=== PATIENT | male | born 1955 | race Caucasian/White ===

== ENCOUNTER 2020-06-11 10:49 | Inpatient (IN) | payer MEDICAID ==
[~2020-06-11] VITALS: Ht 172.7 cm; Wt 88.6 kg
--- NOTE | 2020-06-11 11:10 | NUR ---
Spoke to medical records at [facility]. They will fax records from ED visit.
[2020-06-11 11:39] LABS: BASOPHILS # (AUTO) 0.1 X10'3 (0-0.2); BASOPHILS % (AUTO) 0.8 % (0-1); EOSINOPHILS # (AUTO) 0.1 X10'3 (0-0.9); EOSINOPHILS % (AUTO) 0.7 % (0-6); HEMATOCRIT 47.3 % (42.0-52.0); HEMOGLOBIN 15.9 g/dl (14.0-17.9); LYMPHOCYTES # (AUTO) 0.9 X10'3 (1.1-4.8); LYMPHOCYTES % (AUTO) 10.3 % (21-51); MEAN CORPUSCULAR HEMOGLOBIN 33.3 PG (27.0-31.0); MEAN CORPUSCULAR HGB CONC 33.5 g/dL (33.0-36.5); MEAN CORPUSCULAR VOLUME 99.2 FL (78-98); MONOCYTES # (AUTO) 0.8 X10'3 (0-0.9); MONOCYTES % (AUTO) 8.5 % (2-12); NEUTROPHILS # (AUTO) 7.2 X10'3 (1.8-7.7); NEUTROPHILS % (AUTO) 79.7 % (42-75); PLATELET COUNT 245 X10'3 (140-440); RED BLOOD COUNT 4.77 X10'6 (4.70-6.10); RED CELL DISTRIBUTION WIDTH 13.5 % (11.5-14.5)
[2020-06-11 11:43] LABS: D-DIMER 0.97 MG/L FEU (0-0.50)
[2020-06-11 11:47] LABS: ALANINE AMINOTRANSFERASE 119 U/L (12-78); ALBUMIN 3.7 G/DL (3.4-5.0); ALBUMIN/GLOBULIN RATIO 1.2 (1.1-1.5); ALKALINE PHOSPHATASE 122 IU/L (46-116); ANION GAP 10 (8-16); ASPARTATE AMINO TRANSFERASE 65 U/L (10-37); BILIRUBIN,TOTAL 1.2 MG/DL (0.1-1.0); BLOOD UREA NITROGEN 28 MG/DL (7-18); BUN/CREATININE RATIO 17.3 (5.4-32.0); CALCIUM 8.8 MG/DL (8.5-10.1); CHLORIDE 106 MMOL/L (99-107); CREATININE 1.62 MG/DL (0.60-1.10); GLUCOSE 131 MG/DL (70-104); POTASSIUM 4.7 MMOL/L (3.5-5.1); SODIUM 139 MMOL/L (135-145); TOTAL CARBON DIOXIDE 23.2 MMOL/L (24-32); TOTAL PROTEIN 6.8 G/DL (6.4-8.2); eGFR 43 ML/MIN
[2020-06-11] MEDS ORDERED: albuterol 2.5 MG/3 ML nebule ONE (11:51)
[2020-06-11] MEDS ORDERED: furosemide 10 MG/1 ML 10ml inj IV ONE (12:05)
[2020-06-11] MEDS ORDERED: potassium Cl 20 mEq SR tablet PO STA (12:05)
[2020-06-11] MEDS ORDERED: iohexol 350MG/ML 100ml bottle IV ONE (12:29)
[2020-06-11] MEDS ORDERED: ALBU8HFA PO (13:19)
[2020-06-11] MEDS ORDERED: CARV6.253 PO (13:19)
[2020-06-11] MEDS ORDERED: morphine 2 MG/ML inj. syringe IV PRN ×2 (13:20)
[2020-06-11] MEDS ORDERED: acetaminophen 325mg tablet PO PRN ×2 (13:20)
[2020-06-11] MEDS ORDERED: ondansetron/PF 4mg/2ml inj IV PRN (13:20)
[2020-06-11] MEDS ORDERED: HYDROcodone/acetaminophen 5mg/325mg tablet PO PRN (13:20)
[2020-06-11] MEDS ORDERED: ipratropium/albuterol 3ml nebule NEB PRN (13:20)
[2020-06-11] MEDS ORDERED: metoclopramide 5 mg/ml inj IV PRN (13:20)
[2020-06-11] MEDS ORDERED: HYDROcodone/acetaminophen 10/325mg tab PO PRN (13:20)
[2020-06-11] MEDS ORDERED: magnesium 2GM in 50ml NS 50 ML IV PRN (13:20)
[2020-06-11] MEDS ORDERED: bisacodyl 10mg suppository rectal RC PRN (13:20)
[2020-06-11] MEDS ORDERED: magnesium 4gm in 100ml NS 100 ML IV PRN (13:20)
[2020-06-11] MEDS ORDERED: diphenhydrAMINE 25mg capsule PO PRN (13:20)
[2020-06-11] MEDS ORDERED: magnesium hydroxide 30ml (MOM) UD suspension PO PRN (13:20)
[2020-06-11] MEDS ORDERED: methylPREDNISolone sod succ 125mg/2ml vial IV ONE (13:20)
[2020-06-11] MEDS ORDERED: diphenhydrAMINE 50 mg/ml inj IV PRN (13:20)
[2020-06-11] MEDS ORDERED: potassium CL 10mEq/100ml bag 100 ML IV PRN ×2 (13:20)
[2020-06-11] MEDS ORDERED: potassium Cl 20 mEq SR tablet PO PRN ×2 (13:20)
[2020-06-11] MEDS ORDERED: magnesium Cl slow-release 64mg tablet PO PRN (13:20)
[2020-06-11] MEDS ORDERED: mag hydrox/Alum hydrox/simeth 30ml oral suspension PO PRN (13:20)
[2020-06-11] MEDS ORDERED: aspirin 325mg tablet PO ONE (13:30)
[2020-06-11] MEDS ORDERED: nitroGLYCERIN 0.4mg SUBLingual tab SL PRN (13:30)
--- NOTE | 2020-06-11 14:06 | NUR ---
Patient in room ED 6. I have received report from wilder garcia rn and had the opportunity to ask questions and assume patient care.
[2020-06-11 14:12] LABS: URINE AMPHETAMINE SCREEN POSITIVE (Neg); URINE BARBITUATE SCREEN NEGATIVE (Neg); URINE BENZODIAZEPINES SCREEN NEGATIVE (Neg); URINE CANNABINOID SCREEN POSITIVE (Neg); URINE COCAINE SCREEN NEGATIVE (Neg); URINE METHADONE SCREEN NEGATIVE (Neg); URINE OPIATE SCREEN NEGATIVE (Neg); URINE PHENCYCLIDINE SCREEN NEGATIVE (Neg)
[2020-06-11 14:30] VITALS: BP 151/100
[2020-06-11 14:37] LABS: HEMOGLOBIN A1C 6.1 % (4.5-6.2)
--- NOTE | 2020-06-11 14:45 | NUR ---
received pt into room 311,oriented to surroundings,pt calm,cooperative ,aware of poc,echo in progress
[2020-06-11 14:46] LABS: PHOSPHORUS 4.5 MG/DL (2.3-4.5)
[2020-06-11] MEDS: ipratropium/albuterol 3ml nebule NEB SCH ×3 (16:52→23:37)
[2020-06-11 18:00] VITALS: BP 149/117
--- NOTE | 2020-06-11 18:19 | NUR ---
Problems reprioritized. Patient report given, questions answered & plan of care reviewed with laisha Araujo.
[2020-06-11] MEDS: methylPREDNISolone sod succ 125mg/2ml vial IV SCH (19:48)
[2020-06-11] MEDS: furosemide 40mg/4ml inj IV SCH (19:49)
[2020-06-11] MEDS: carvedilol 6.25mg tablet PO SCH (19:50)
[2020-06-11] MEDS: lisinopril 10 MG tablet PO SCH (19:56)
[2020-06-11] MEDS: K and/or MAG REPLACEMENT MC SCH (19:57)
[2020-06-11] MEDS ORDERED: temazepam 15mg capsule PO PRN (21:00)
[2020-06-11 22:00] VITALS: BP 142/100
[2020-06-12] VITALS (7 sets, daily range): BP systolic 105–138; BP diastolic 75–102
[2020-06-12 00:43] LABS: HEMATOCRIT 47.6 % (42.0-52.0); HEMOGLOBIN 15.9 g/dl (14.0-17.9); MEAN CORPUSCULAR HEMOGLOBIN 33.2 PG (27.0-31.0); MEAN CORPUSCULAR HGB CONC 33.5 g/dL (33.0-36.5); MEAN CORPUSCULAR VOLUME 99.1 FL (78-98); PLATELET COUNT 247 X10'3 (140-440); RED CELL DISTRIBUTION WIDTH 13.7 % (11.5-14.5); WHITE BLOOD COUNT 7.2 X10'3 (4.5-11.0)
[2020-06-12 00:52] LABS: ALBUMIN 3.5 G/DL (3.4-5.0); ANION GAP 10 (8-16); BLOOD UREA NITROGEN 39 MG/DL (7-18); BUN/CREATININE RATIO 20.2 (5.4-32.0); CALCIUM 8.4 MG/DL (8.5-10.1); CHLORIDE 103 MMOL/L (99-107); CREATININE 1.93 MG/DL (0.60-1.10); GLUCOSE 161 MG/DL (70-104); POTASSIUM 4.2 MMOL/L (3.5-5.1); SODIUM 139 MMOL/L (135-145); TOTAL CARBON DIOXIDE 25.7 MMOL/L (24-32); eGFR 35 ML/MIN
[2020-06-12 00:55] LABS: CHOLESTEROL 131 MG/DL (0-200); HDL CHOLESTEROL 33 MG/DL (35-60); LDL CHOLESTEROL 94 MG/DL (50-100); PHOSPHORUS 5.2 MG/DL (2.3-4.5); TRIGLYCERIDES 44 MG/DL (20-135)
[2020-06-12] MEDS: methylPREDNISolone sod succ 125mg/2ml vial IV SCH ×3 (02:24→15:42)
[2020-06-12] MEDS: ipratropium/albuterol 3ml nebule NEB SCH ×6 (03:28→23:51)
--- NOTE | 2020-06-12 06:27 | NUR ---
Problems reprioritized. Patient report given, questions answered & plan of care reviewed with MARCELLA Iglesias.
[2020-06-12] MEDS: K and/or MAG REPLACEMENT MC SCH ×2 (08:00→19:03)
[2020-06-12] MEDS ORDERED: aspirin 325mg tablet PO SCH (08:30)
[2020-06-12] MEDS: furosemide 40mg/4ml inj IV SCH (09:04)
[2020-06-12] MEDS: carvedilol 6.25mg tablet PO SCH ×2 (09:05→19:11)
[2020-06-12] MEDS: aspirin 81mg tablet.DR PO SCH (09:06)
[2020-06-12] MEDS: lisinopril 10 MG tablet PO SCH (09:08)
[2020-06-12] MEDS: enoxaparin 40mg/0.4ml syringe SUBCUT SCH (09:09)
--- NOTE | 2020-06-12 15:45 | NUR ---
Report given to Med/capacity management specialist. The pt has remained stable MD and an order for transfer received. The pt was taken via wheelchair to Med/Surg unit.
--- NOTE | 2020-06-12 17:03 | NUR ---
Oriented to room, call light within reach, VS taken. Pt. appears to be in no distress.
--- NOTE | 2020-06-12 17:14 | NUR ---
PAGER ID: [phone] MESSAGE: Chauncey Perry [id number] FYI BP 150/102... Diastolic has been trending high. Pt. transferred from [facility] to surgical. Saskia [id number]
--- NOTE | 2020-06-12 18:46 | NUR ---
Problems reprioritized. Patient report given, questions answered & plan of care reviewed with DIANA NARANJO.
--- NOTE | 2020-06-12 18:50 | NUR ---
Gave report to Prudence MARCELLA.
--- NOTE | 2020-06-12 18:59 | NUR ---
Patient in room [facility] 340. I have received report from Raquel NARANJO and had the opportunity to ask questions and assume patient care.
--- NOTE | 2020-06-12 19:16 | NUR ---
Problems reprioritized. Patient report given, questions answered & plan of care reviewed with YO NARANJO.Patient was transported to ortho floor and no sign of distress upon arrival.
[2020-06-13] MEDS: ipratropium/albuterol 3ml nebule NEB SCH ×3 (03:46→13:11)
[2020-06-13 05:56] LABS: HEMATOCRIT 45.6 % (42.0-52.0); HEMOGLOBIN 15.2 g/dl (14.0-17.9); MEAN CORPUSCULAR HEMOGLOBIN 32.8 PG (27.0-31.0); MEAN CORPUSCULAR HGB CONC 33.2 g/dL (33.0-36.5); MEAN CORPUSCULAR VOLUME 98.9 FL (78-98); MEAN PLATELET VOLUME 9.2 FL (7.4-10.4); PLATELET COUNT 245 X10'3 (140-440); RED BLOOD COUNT 4.61 X10'6 (4.70-6.10); RED CELL DISTRIBUTION WIDTH 13.7 % (11.5-14.5); WHITE BLOOD COUNT 19.4 X10'3 (4.5-11.0)
[2020-06-13 06:00] VITALS: BP 91/68
[2020-06-13 06:01] LABS: ALBUMIN 3.3 G/DL (3.4-5.0); ANION GAP 8 (8-16); BLOOD UREA NITROGEN 61 MG/DL (7-18); BUN/CREATININE RATIO 31.8 (5.4-32.0); CALCIUM 8.2 MG/DL (8.5-10.1); CHLORIDE 102 MMOL/L (99-107); CREATININE 1.92 MG/DL (0.60-1.10); GLUCOSE 144 MG/DL (70-104); MAGNESIUM 2.2 MG/DL (1.5-2.4); PHOSPHORUS 4.8 MG/DL (2.3-4.5); POTASSIUM 4.4 MMOL/L (3.5-5.1); SODIUM 136 MMOL/L (135-145); TOTAL CARBON DIOXIDE 26.2 MMOL/L (24-32); eGFR 35 ML/MIN
--- NOTE | 2020-06-13 06:13 | NUR ---
Problems reprioritized. Patient report given, questions answered & plan of care reviewed with Zari NARANJO.
[2020-06-13] MEDS ORDERED: furosemide 40mg/4ml inj IV SCH (08:00)
[2020-06-13] MEDS: lisinopril 10 MG tablet PO SCH (09:59)
[2020-06-13] MEDS: carvedilol 6.25mg tablet PO SCH (09:59)
[2020-06-13 10:00] VITALS: BP 125/80
[2020-06-13] MEDS: enoxaparin 40mg/0.4ml syringe SUBCUT SCH (10:00)
[2020-06-13] MEDS: aspirin 81mg tablet.DR PO SCH (10:00)
[2020-06-13] MEDS ORDERED: FURO20TA4 PO (11:52)
[2020-06-13] MEDS ORDERED: LISI10TA4 PO (11:52)
[2020-06-13] MEDS ORDERED: SPIR25TA PO (11:52)
[2020-06-13] MEDS ORDERED: ASPI-1071 PO (11:52)
--- NOTE | 2020-06-13 14:29 | NUR ---
Received discharge orders from Dr. Bean. Discontinued saline lock from LFA with cannula intact. No redness/swelling at IV site. Tele #6 discontinued per MD orders. Reviewed pts discharge information with pt at bedside. Pt discharged via w/c to front lobby for caregiver to pick up and delivery driver.
[2020-06-13 17:24] LABS: HBSAG SCREEN Negative (Negative); HEP A AB, IGM Negative (Negative); HEPATITIS C ANTIBODY <0.1 s/co ratio (0.0-0.9)
== END 2020-06-13 14:30 | disposition home or self-care (01) | DRG 812 ==
LOC: ER 10:50 → CANBEDREQ 12:52 → ED HOLD 13:18 → MED 3N 14:30 → SUR 3N 06-12 15:47 → ORTHO 4S 06-12 19:15
PROVIDERS: ADMIT Family Medicine; ATTEND Family Medicine
DX: T43.621A Poisoning by amphetamines, accidental (unintentional), initial encounter (principal); I21.4 Non-ST elevation (NSTEMI) myocardial infarction; I50.21 Acute systolic (congestive) heart failure; N17.9 Acute kidney failure, unspecified; F19.10 Other psychoactive substance abuse, uncomplicated; F15.10 Other stimulant abuse, uncomplicated; F41.1 Generalized anxiety disorder; I08.1 Rheumatic disorders of both mitral and tricuspid valves; I13.0 Hypertensive heart and chronic kidney disease with heart failure and stage 1 through stage 4 chronic kidney disease, or unspecified chronic kidney disease; I42.7 Cardiomyopathy due to drug and external agent; J45.909 Unspecified asthma, uncomplicated; N18.9 Chronic kidney disease, unspecified; Z20.828 Contact with and (suspected) exposure to other viral communicable diseases
CPT/HCPCS: 36415; 71045; 71275; 76700; 80048; 80053; 80061; 80074; 80305; 83036; 83735; 83880; 84100; 84443; 84484; 85025; 85027; 85379; 87081; 93005; 93306; 93308; 94640; 94667; 94668; 94760; 96374; 96375; 99285; G0378; J1650; J1940; J2930; Q9967

== ENCOUNTER 2020-06-16 05:03 | Emergency (ER) | payer MEDICAID ==
[~2020-06-16] VITALS: Ht 172.7 cm; Wt 86.4 kg
[~2020-06-16 05:03] MED LIST: ALBU8HFA PO; ASPI-1071 PO; CARV6.253 PO; FURO20TA4 PO; LISI10TA4 PO; SPIR25TA PO
[2020-06-16 05:45] LABS: BASOPHILS % (AUTO) 0.3 % (0-1); EOSINOPHILS # (AUTO) 0.2 X10'3 (0-0.9); EOSINOPHILS % (AUTO) 2.2 % (0-6); HEMOGLOBIN 16.6 g/dl (14.0-17.9); LYMPHOCYTES # (AUTO) 1.1 X10'3 (1.1-4.8); LYMPHOCYTES % (AUTO) 13.4 % (21-51); MEAN CORPUSCULAR HEMOGLOBIN 32.6 PG (27.0-31.0); MEAN CORPUSCULAR HGB CONC 33.1 g/dL (33.0-36.5); MEAN CORPUSCULAR VOLUME 98.4 FL (78-98); MONOCYTES # (AUTO) 0.9 X10'3 (0-0.9); MONOCYTES % (AUTO) 10.2 % (2-12); NEUTROPHILS # (AUTO) 6.3 X10'3 (1.8-7.7); NEUTROPHILS % (AUTO) 73.9 % (42-75); PLATELET COUNT 248 X10'3 (140-440); RED BLOOD COUNT 5.09 X10'6 (4.70-6.10); RED CELL DISTRIBUTION WIDTH 14.1 % (11.5-14.5); WHITE BLOOD COUNT 8.5 X10'3 (4.5-11.0)
[2020-06-16 06:00] LABS: ALANINE AMINOTRANSFERASE 212 U/L (12-78); ALBUMIN 3.7 G/DL (3.4-5.0); ALBUMIN/GLOBULIN RATIO 1.2 (1.1-1.5); ALKALINE PHOSPHATASE 161 IU/L (46-116); ANION GAP 6 (8-16); ASPARTATE AMINO TRANSFERASE 64 U/L (10-37); BILIRUBIN,TOTAL 0.6 MG/DL (0.1-1.0); BLOOD UREA NITROGEN 40 MG/DL (7-18); BUN/CREATININE RATIO 31.3 (5.4-32.0); CHLORIDE 104 MMOL/L (99-107); CREATININE 1.28 MG/DL (0.60-1.10); GLUCOSE 121 MG/DL (70-104); POTASSIUM 4.5 MMOL/L (3.5-5.1); SODIUM 140 MMOL/L (135-145); TOTAL CARBON DIOXIDE 30.4 MMOL/L (24-32); TOTAL PROTEIN 6.9 G/DL (6.4-8.2); eGFR 57 ML/MIN
[2020-06-16] MEDS ORDERED: furosemide 10 MG/1 ML 10ml inj IV ONE (06:15)
[2020-06-16 07:04] VITALS: BP 145/95
== END 2020-06-16 07:15 | disposition home or self-care (01) ==
LOC: ER 05:04
DX: R06.00 Dyspnea, unspecified (principal); R06.02 Shortness of breath; R10.9 Unspecified abdominal pain; Z20.828 Contact with and (suspected) exposure to other viral communicable diseases; F41.9 Anxiety disorder, unspecified; J45.909 Unspecified asthma, uncomplicated; Z79.82 Long term (current) use of aspirin; Z79.899 Other long term (current) drug therapy
CPT/HCPCS: 36415; 71045; 80053; 83880; 85025; 87635; 93005; 96374; 99285; C9803; J1940; 99283